=== PATIENT | female | born 1970 | race Caucasian/White ===

== ENCOUNTER 2024-10-09 20:22 | Observation (INO) | payer SELFPAY ==
[2024-10-09] MEDS ORDERED: ASPIRIN EC 81 MG TAB PO ONE (21:09)
[2024-10-09] MEDS ORDERED: NA CHLORIDE 0.9% 1,000 ML ONE (21:09)
[2024-10-09 21:14] LABS: Absolute Lymphocytes (CBC) 1.4 K/uL (0.7-4.9); Absolute Monocytes 0.5 K/uL (0.1-1.3); Absolute Neutrophil 6.4 K/uL (1.8-8.0); Basophils % 0.5 % (0-1.3); Eosinophils % 0.1 % (0-4.4); Hematocrit 37.6 % (36.0-45.0); Hemoglobin 12.6 g/dL (12.0-15.0); Lymphocytes % 16.4 % (15.3-44.8); MCH 29.2 pg (27.0-35.0); MCHC 33.5 g/dL (32.0-36.0); MCV 87.2 fL (80-100); MPV 8.8 fL (7.6-11.3); Monocytes % 5.7 % (3.3-12.3); Neutrophils % 77.3 % (41.7-73.7); Nucleated Red Blood Cells % 0.1 % (0-0); Platelets 275 thou/uL (152-406); RBC Red Blood Cell Count 4.31 M/uL (3.86-4.86); Red Cell Distribution Width 13.8 % (12.1-15.2)
[2024-10-09 21:17] LABS: Specific Gravity < 1.005 (1.005-1.030); Sqamous Epithelial <5 /HPF (None Seen); Urine Bacteria None Seen /HPF (<20); Urine Bilirubin NEGATIVE (Negative); Urine Blood Negative (Negative); Urine Clarity Clear (Clear); Urine Color Colorless (Yellow); Urine Crystals Unidentified Few /HPF (None Seen); Urine Culture Reflex Order NOT NEEDED; Urine Glucose NEGATIVE (Negative); Urine Ketones NEGATIVE (Negative); Urine Microscopic Reflex YN ORDER UMIC; Urine Mucus Slight /HPF (None Seen); Urine Nitrite NEGATIVE (Negative); Urine Protein NEGATIVE (Negative); Urine RBC <5 /HPF (None Seen); Urine Urobilinogen Normal (Normal); Urine WBC <5 /HPF (<5); Urine pH 6.5 (5.0-7.0)
[2024-10-09 21:21] LABS: PT Prothrombin Time 12.2 SECONDS (9.4-12.5); Protime INR 1.16
--- NOTE | 2024-10-09 21:24 | RAD REPORT ---
EXAMINATION: ONE VIEW CHEST XR CLINICAL INDICATION: Female, 54 years old.,COUGH TECHNIQUE: Frontal chest projection is submitted. Examination is limited by patient positioning and t echnique. COMPARISON: No prior exam. FINDINGS: The lungs are well inflated and clear. No pneumothorax or sizable effusion. The heart is normal in s ize. Mediastinal contours are unremarkable. IMPRESSION: No acute intrathoracic abnormalities.
[2024-10-09 21:25] LABS: Barbiturates NEGATIVE (NEGATIVE); Benzodiazepines NEGATIVE (NEGATIVE); Cocaine NEGATIVE (NEGATIVE); METHAMPHETAM NEGATIVE (NEGATIVE); Methadone NEGATIVE (NEGATIVE); Opiates NEGATIVE (NEGATIVE); Phencyclidine NEGATIVE (NEGATIVE); THC Cannibis NEGATIVE (NEGATIVE)
[2024-10-09 21:40] LABS: ALT/SGPT 18 U/L (13-56); AST/SGOT 13 U/L (15-37); Albumin 3.7 g/dL (3.4-5.0); Albumin/Globulin Ratio 0.9 (1.1-1.8); Alkaline Phosphatase 90 U/L (45-117); Anion Gap 10.7 mEq/L (5.0-15.0); BUN Blood Urea Nitrogen 10 mg/dL (7-18); Bicarbonate 25 mEq/L (21-32); Bilirubin Total 0.5 mg/dL (0.2-1.0); Globulin 4.2 g/dL (2.3-3.5); Glomerular Filtration Rate 74 ml/min (=/>90); Glucose Level 105 mg/dL (74-106); Lipase 26 U/L (13-75); Magnesium 2.4 mg/dL (1.6-2.4); NT PRO-BNP 262 pg/mL (<125); Potassium 3.7 mEq/L (3.5-5.1); Protein, Total 7.9 g/dL (6.4-8.2); Sodium Level 140 mEq/L (136-145); Troponin High Sensitivity 6.7 pg/mL (<58.9)
[2024-10-09 21:42] LABS: Bilirubin Direct < 0.2 mg/dL (0-0.2); Bilirubin Indirect, Calculated 0.3 mg/dL (0.2-0.8)
[2024-10-09] MEDS ORDERED: ENOXAPARIN 100 MG/ML SYR SQ ONE (22:14)
[2024-10-09] MEDS ORDERED: METOPROLOL TAR 50 MG TAB ONE (22:14)
[2024-10-09] MEDS ORDERED: ONDANSETRON 4 MG/2 ML VIAL ONE (22:14)
--- NOTE | 2024-10-09 22:14 | EDPHYS ---
Physician Documentation [facility] Name: Mary Beth Pedroza Age: 54 yrs Sex: Female : 1970 Arrival Date: 10/09/2024 Time: 20:22 Bed 19 Private MD: ED Physician Prieto Sanford HPI: 10/09 22:07 This 54 yrs old Female presents to ER via Ambulatory with complaints of Chest dale Pain, High Blood Pressure, Altered Mental Status. 22:07 The patient or guardian reports chest pain that is located primarily in the substernal dale area. Onset: today. The pain does not radiate. Associated signs and symptoms: Pertinent positives: lower extremity pain, lower extremity swelling. The chest pain is described as a heaviness. Modifying factors: The symptoms are alleviated by nothing. the symptoms are aggravated by activity, emotionally stressful situations. Severity of pain: At its worst the pain was moderate in the emergency department the pain is unchanged. The patient has experienced similar episodes in the past, a few times. Historical: - Allergies: 21:17 No Known Allergies; rg5 - Home Meds: 21:17 carvedilol 6.25 mg oral tablet [Active]; losartan potassium (bulk) 100 % miscellaneous rg5 powder [Active]; - Immunization history:: Adult Immunizations not up to date. - Infectious Disease History:: Denies. - Social history:: Smoking status: unknown. - Family history:: not pertinent. ROS: 22:07 Constitutional: Negative for fever, chills, and weight loss, Eyes: Negative for injury, dale pain, redness, and discharge, ENT: Negative for injury, pain, and discharge, Neck: Negative for injury, pain, and swelling, Abdomen/GI: Negative for abdominal pain, nausea, vomiting, diarrhea, and constipation, Back: Negative for injury and pain, : Negative for injury, bleeding, discharge, and swelling, Skin: Negative for injury, rash, and discoloration, Neuro: Negative for headache, weakness, numbness, tingling, and seizure, Psych: Negative for depression, anxiety, suicide ideation, homicidal ideation, and hallucinations, Allergy/Immunology: Negative for hives, rash, and allergies, Endocrine: Negative for neck swelling, polydipsia, polyuria, polyphagia, and marked weight changes, Hematologic/Lymphatic: Negative for swollen nodes, abnormal bleeding, and unusual bruising, 22:07 Cardiovascular: Positive for chest pain, 22:07 Respiratory: Positive for shortness of breath, 22:07 MS/extremity: Positive for pain, of the right leg and left leg, Exam: 22:07 Constitutional: This is a well developed, well nourished patient who is awake, alert, dale and in no acute distress. Head/Face: Normocephalic, atraumatic. Eyes: Pupils equal round and reactive to light, extra-ocular motions intact. Lids and lashes normal. Conjunctiva and sclera are non-icteric and not injected. Cornea within normal limits. Periorbital areas with no swelling, redness, or edema. ENT: Nares patent. No nasal discharge, no septal abnormalities noted. Tympanic membranes are normal and external auditory canals are clear. Oropharynx with no redness, swelling, or masses, exudates, or evidence of obstruction, uvula midline. Mucous membranes moist. Neck: Trachea midline, no thyromegaly or masses palpated, and no cervical lymphadenopathy. Supple, full range of motion without nuchal rigidity, or vertebral point tenderness. No Meningismus. Chest/axilla: Normal chest wall appearance and motion. Nontender with no deformity. No lesions are appreciated. Cardiovascular: Regular rate and rhythm with a normal S1 and S2. No gallops, murmurs, or rubs. Normal PMI, no JVD. No pulse deficits. Respiratory: Lungs have equal breath sounds bilaterally, clear to auscultation and percussion. No rales, rhonchi or wheezes noted. No increased work of breathing, no retractions or nasal flaring. Abdomen/GI: Soft, non-tender, with normal bowel sounds. No distension or tympany. No guarding or rebound. No evidence of tenderness throughout. Back: No spinal tenderness. No costovertebral tenderness. Full range of motion. Skin: Warm, dry with normal turgor. Normal color with no rashes, no lesions, and no evidence of cellulitis. MS/ Extremity: Pulses equal, no cyanosis. Neurovascular intact. Full, normal range of motion., bilateral aka Neuro: Awake and alert, GCS 15, oriented to person, place, time, and situation. Cranial nerves II-XII grossly intact. Motor strength 5/5 in all extremities. Sensory grossly intact. Cerebellar exam normal. Normal gait. Psych: Awake, alert, with orientation to person, place and time. Behavior, mood, and affect are within normal limits. 22:07 ECG was reviewed by the Attending Physician. 22:07 Musculoskeletal/extremity: ROM: no acute changes, intact in all extremities, full active range of motion, full passive range of motion, Circulation is intact in all extremities. Sensation intact. Compartment Syndrome exam of affected extremity: is normal. Weight bearing: able to fully bear weight, DVT Exam: negative Homans' sign noted on exam, no appreciated bluish discoloration, no erythema, no increased warmth, pain, swelling, tenderness, Vital Signs: 20:26 BP 178 / 106; Pulse 91; Resp 18; Temp 98.3(O); Pulse Ox 96% on R/A; Height 5 ft. 7 in. rg5 ; Pain 5/10; 21:45 BP 175 / 91; Pulse 84; Resp 19; Pulse Ox 95% on R/A; Weight 92.99 kg; rg5 22:30 BP 162 / 88; Pulse 79; Resp 18; Pulse Ox 97% on R/A; rg5 23:30 BP 146 / 84; Pulse 69; Resp 18; Pulse Ox 98% on R/A; rg5 10/10 00:15 BP 147 / 80; Pulse 68; Resp 18; Pulse Ox 96% on R/A; rg5 10/09 20:26 Pain Scale: Adult rg5 Terry Coma Score: 10/09 20:30 Eye Response: spontaneous(4). Motor Response: obeys commands(6). Verbal Response: rg5 oriented(5). Total: 15. MDM: 20:26 Medical Screening Exam initiated dale 22:16 Differential diagnosis: abnormal EKG, acute myocardial infarction, acute pericarditis, dale anxiety, chest wall pain, Cholelithiasis costochondritis, esophagitis, gastroesophageal reflux disease (GERD), hiatal hernia, pancreatitis, peptic ulcer disease, pericarditis, pleurisy, pneumonia, pulmonary embolus, stable angina, thoracic aortic disection, unstable angina. HEART Score: History: Moderately Suspicious (1), ECG: Normal (0), Age: > 45 and < 65 years (1), Risk Factors: > or = 3 Risk factors for atherosclerotic disease (2), [Hypertension] [+ Family HX] [Obesity] Troponin: < or = 1 x Normal Limit (0). The patient was given aspirin in the Emergency Department. Data reviewed: vital signs, nurses notes, lab test result(s), EKG, radiologic studies, doppler, plain films. Consideration of Admission/Observation Patient was admitted/placed on observation. Escalation of care including admission/observation considered. I considered the following discharge prescriptions or medication management in the emergency department Medications were administered in the Emergency Department. See MAR. Independent interpretation of the following test(s) in the Emergency Department EKG: See my EKG interpretation above. Test considered but Not performed: Ultrasound NO 2 D ECHO. Historians other than the Patient: PT WELL INFORMED. Care significantly affected by the following chronic conditions: Hypertension, Obesity. Counseling: I had a detailed discussion with the patient and/or guardian regarding the historical points, exam findings, and any diagnostic results supporting the discharge/admit diagnosis, the presence of at least one elevated blood pressure reading (>120/80) during this emergency department visit, lab results, the need for further work-up and treatment in the hospital. 10/09 20: Order name: Basic Metabolic Panel; Complete Time: 22:10/09 20:33 Order name: CBC with Diff; Complete Time: 22:10/09 20:33 Order name: LFT's; Complete Time: 22:10/09 20:33 Order name: Magnesium; Complete Time: 22:10/09 20:33 Order name: NT PRO-BNP; Complete Time: 22:05 10/09 20:33 Order name: PT-INR; Complete Time: 22:10/09 20: Order name: Troponin HS; Complete Time: 22:05 10/09 20:33 Order name: Lipase; Complete Time: 22:05 10/09 20:33 Order name: Asprin; Complete Time: 22:05 10/09 20:33 Order name: Tylenol Level; Complete Time: 22:05 10/09 20:33 Order name: ETOH Level; Complete Time: 22:10/09 20:33 Order name: UDS; Complete Time: 22:05 10/09 20:33 Order name: Urinalysis w/ reflexes; Complete Time: 22:10/09 21:16 Order name: Thyroid Stimulating Hormone; Complete Time: 22:05 EDMS 10/09 22:06 Order name: Urine Creatinine; Complete Time: 22:56 [facility] 10/09 23:05 Order name: Urinalysis w/ reflexes [facility] 10/09 23:05 Order name: CBC with Automated Diff [facility] 10/09 23:05 Order name: CBC with Automated Diff [facility] 10/09 23:05 Order name: Comprehensive Metabolic Panel [facility] 10/09 23:05 Order name: Comprehensive Metabolic Panel [facility] 10/09 23:05 Order name: Troponin High Sensitivity [facility] 10/09 23:05 Order name: Troponin High Sensitivity [facility] 10/09 23:05 Order name: Troponin High Sensitivity [facility] 10/09 23:05 Order name: Troponin High Sensitivity [facility] 10/09 20:33 Order name: XRAY Chest (1 view); Complete Time: 22:05 [facility] 10/09 20:33 Order name: CT Head Brain wo Cont; Complete Time: 22:56 [facility] 10/09 20:33 Order name: CT Chest For PE Angio [facility] 10/09 20:47 Order name: US Extremity Venous W Compression Don; Complete Time: 22:56 [facility] 10/09 20:33 Order name: EKG; Complete Time: 20:33 [facility] 10/09 20:33 Order name: Cardiac monitoring; Complete Time: 20:59 [facility] 10/09 20:33 Order name: EKG - Nurse/Tech; Complete Time: 20:59 [facility] 10/09 20:33 Order name: IV Saline Lock; Complete Time: 21:08 [facility] 10/09 20:33 Order name: Labs collected and sent; Complete Time: 21:08 [facility] 10/09 20:33 Order name: O2 Per Protocol; Complete Time: 21:17 [facility] 10/09 20:33 Order name: O2 Sat Monitoring; Complete Time: 21:17 [facility] EC:07 Rate is 87 beats/min. Rhythm is regular. QRS [place] is Normal. MI interval is normal. QRS dale interval is normal. QT interval is normal. No Q waves. T waves are Normal. No ST changes noted. Clinical impression: Normal ECG and No evidence of ischemia. Interpreted by me. Reviewed by me. Administered Medications: 21:10 Drug: NS 0.9% IV 1000 ml IV at 1000 ml once; to be given as a bolus over 60 minutes rg5 Route: IV; Rate: 1000 ml; Site: left antecubital; 22:30 Follow up: IV Status: Completed infusion; IV Intake: 1000ml rg5 21:10 Drug: Aspirin PO Chewable Tablet 81 mg PO once Route: PO; rg5 21:43 Follow up: Response: No adverse reaction rg5 22:15 Drug: Enoxaparin Sub-Q 1 mg/kg Sub-Q once Route: Sub-Q; Site: right lower abdomen; rg5 10/10 00:40 Follow up: Response: No adverse reaction rg5 10/09 22:15 Drug: Metoprolol PO 50 mg PO once Route: PO; rg5 10/10 00:40 Follow up: Response: No adverse reaction; Blood sugar is lowered rg5 10/09 22:15 Drug: morphine IVP or IV 2 mg IVP once over 4 mins Route: IVP; Infused Over: 4 mins; rg5 Site: left antecubital; 10/10 00:40 Follow up: Response: No adverse reaction; Pain is decreased rg5 10/09 22:15 Drug: Ondansetron IVP 4 mg IVP once; over 2 minutes Route: IVP; Site: left antecubital; rg5 10/10 00:40 Follow up: Response: No adverse reaction rg5 Disposition Summary: 10/09/24 22:13 Hospitalization Ordered Notes: Hospitalization Status: Observation dale Provider: Angel Luis Epstein cha Location: Telemetry/MedSurg (observation) dale Condition: [place] dale Problem: new dale Symptoms: have improved dale Bed/Room Type: Standard dale Room Assignment: 219(10/09/24 23:14) rv1 Diagnosis - Chest pain, unspecified dale - Pain in left lower leg dale - Pain in right lower leg dale - Essential (primary) hypertension dale Forms: - Medication Reconciliation Form dale - SBAR form dale - Leadership Thank You Letter dale Signatures: Dispatcher [employer] EDPrieto Scott MD MD cha Villegas, Rebecca rv1 Theron Mcgill RN RN rg5 Corrections: (The following items were deleted from the chart) 10/09 20:34 20:33 Chest Single View+RAD.RAD.BRZ ordered. EDMS EDMS 21:17 20:48 THYROID STIMULAT HORMONE+C.LAB.BRZ ordered. EDMS EDMS 23:14 22:13 dale rv1
--- NOTE | 2024-10-09 22:14 | ER ---
Nurse's Notes [facility] Name: Mary Beth Pedroza Age: 54 yrs Sex: Female : 1970 Arrival Date: 10/09/2024 Time: 20:22 Bed 19 Private MD: Diagnosis: Chest pain, unspecified;Pain in left lower leg;Pain in right lower leg;Essential (primary) hypertension Presentation: 10/09 20:26 Chief complaint: Patient states: my blood pressure is high and my legs are swelling on rg5 \T\ off. Pt also complaint of chest discomfort. 20:26 Coronavirus screen: Vaccine status: Patient reports being unvaccinated. Client denies rg5 travel out of the [place] in the last 14 days. Ebola Screen: Patient negative for fever greater than or equal to 101.5 degrees Fahrenheit, and additional compatible Ebola Virus Disease symptoms. Initial Sepsis Screen: Does the patient meet any 2 criteria? No. Patient's initial sepsis screen is negative. Does the patient have a suspected source of infection? No. Patient's initial sepsis screen is negative. Risk Assessment: Do you want to hurt yourself or someone else? Patient reports no desire to harm self or others. Onset of symptoms was October 09, 2024. 20:26 Method Of Arrival: Ambulatory rg5 20:26 Acuity: MAK 3 rg5 Triage Assessment: 20:26 General: Appears in no apparent distress. Behavior is calm, cooperative. Pain: Denies rg5 pain. Cardiovascular: Reports chest pain, Patient's skin is warm and dry. Rhythm is sinus rhythm. Respiratory: Airway is patent Trachea midline Respiratory effort is even, unlabored. GI: Abdomen is round obese. : No signs and/or symptoms were reported regarding the genitourinary system. Derm: Skin is intact, Skin is dry, Skin is normal. Musculoskeletal: Circulation, motion, and sensation intact. Range of motion:. Historical: - Allergies: 21:17 No Known Allergies; rg5 - Home Meds: 21:17 carvedilol 6.25 mg oral tablet [Active]; losartan potassium (bulk) 100 % miscellaneous rg5 powder [Active]; - Immunization history:: Adult Immunizations not up to date. - Infectious Disease History:: Denies. - Social history:: Smoking status: unknown. - Family history:: not pertinent. Screenin:26 [facility] ED Fall Risk Assessment (Adult) History of falling in the last 3 months, rg5 including since admission No falls in past 3 months (0 pts) Confusion or Disorientation No (0 pts) Intoxicated or Sedated No (0 pts) Impaired Gait No (0 pts) Mobility Assist Device Used No (0 pt) Altered Elimination No (0 pt) Score/Fall Risk Level 0 - 2 = Low Risk Oriented to surroundings, Maintained a safe environment, Hourly rounding (assess needs \T\ fall precautionary measures) done. Abuse screen: Denies threats or abuse. Nutritional screening: No deficits noted. Tuberculosis screening: No symptoms or risk factors identified. Assessment: 20:30 Pain: Pain does not radiate. Pain began 1 hour ago. rg5 20:30 General: Appears in no apparent distress. Behavior is calm, cooperative, appropriate rg5 for age. Neuro: Level of Consciousness is awake, alert, Oriented to person, place, time. Cardiovascular: Reports chest pain. Respiratory: Airway is patent Trachea midline. GI: Abdomen is round. : No signs and/or symptoms were reported regarding the genitourinary system. EENT: No deficits noted. Derm: No signs and/or symptoms reported regarding the dermatologic system. Musculoskeletal: Circulation, motion, and sensation intact. Range of motion: intact in all extremities. 21:00 Reassessment: Patient and/or family updated on plan of care and expected duration. Pain rg5 level reassessed. Patient is alert, oriented x 3, equal unlabored respirations, skin warm/dry/pink. 22:00 Reassessment: Patient and/or family updated on plan of care and expected duration. Pain rg5 level reassessed. Patient is alert, oriented x 3, equal unlabored respirations, skin warm/dry/pink. 23:00 Reassessment: Patient and/or family updated on plan of care and expected duration. Pain rg5 level reassessed. Patient is alert, oriented x 3, equal unlabored respirations, skin warm/dry/pink. Patient states feeling better. 10/10 00:30 Reassessment: No changes from previously documented assessment. Patient and/or family rg5 updated on plan of care and expected duration. Pain level reassessed. Patient is alert, oriented x 3, equal unlabored respirations, skin warm/dry/pink. Vital Signs: 10/09 20:26 BP 178 / 106; Pulse 91; Resp 18; Temp 98.3(O); Pulse Ox 96% on R/A; Height 5 ft. 7 in. rg5 ; Pain 5/10; 21:45 BP 175 / 91; Pulse 84; Resp 19; Pulse Ox 95% on R/A; Weight 92.99 kg; rg5 22:30 BP 162 / 88; Pulse 79; Resp 18; Pulse Ox 97% on R/A; rg5 23:30 BP 146 / 84; Pulse 69; Resp 18; Pulse Ox 98% on R/A; rg5 10/10 00:15 BP 147 / 80; Pulse 68; Resp 18; Pulse Ox 96% on R/A; rg5 10/09 20:26 Pain Scale: Adult rg5 Vitals: 10/09 20:30 Cardiac Rhythm Assessment Regular Sinus rhythm. rg5 Jackson Coma Score: 20:30 Eye Response: spontaneous(4). Motor Response: obeys commands(6). Verbal Response: rg5 oriented(5). Total: 15. ED Course: 20:23 Patient arrived in ED. [email or web address] 20:26 Prieto Sanford MD is Attending Physician. dale 20:26 No provider procedures requiring assistance completed. rg5 20:26 Arm band placed on. EKG completed in triage. Results shown to MD. rg5 20:26 Patient has correct armband on for positive identification. Call light in reach. Side rg5 rails up X 1. Client placed on continuous cardiac and pulse oximetry monitoring. NIBP monitoring applied. cardiac monitor on. Pulse ox on. NIBP on. Door closed. Noise minimized. Warm blanket given. 20:30 Patient maintains SpO2 saturation greater than 95% on room air. rg5 20:41 Theron Mcgill, RN is Primary Nurse. rg5 20:55 Triage completed. rg5 21:00 Inserted saline lock: 20 gauge in right antecubital area, using aseptic technique. vk Blood collected. Flushed with 10 mL NS. 21:08 Urinalysis w/ reflexes Sent. vk 21:08 UDS Sent. vk 21:08 ETOH Level Sent. vk 21:08 Tylenol Level Sent. vk 21:08 Basic Metabolic Panel Sent. vk 21:08 CBC with Diff Sent. vk 21:08 LFT's Sent. vk 21:08 Magnesium Sent. vk 21:08 NT PRO-BNP Sent. vk 21:08 PT-INR Sent. vk 21:08 Troponin HS Sent. vk 21:08 Asprin Sent. vk 21:08 Inserted saline lock: 20 gauge in left antecubital area, using aseptic technique. Blood vk collected. Flushed with 10 mL NS. 21:15 XRAY Chest (1 view) In Process Unspecified. EDMS 22:09 US Extremity Venous W Compression Don In Process Unspecified. EDMS 22:12 Angel Luis Epstein MD is Hospitalizing Provider. dale 22:17 CT Head Brain wo Cont In Process Unspecified. EDMS 22:20 CT Chest For PE Angio In Process Unspecified. EDMS 10/10 00:34 Patient admitted, IV remains in place. intact, No redness/swelling at site. [facility] 00:35 Provided Education on: post er care. rg Administered Medications: 10/09 21:10 Drug: NS 0.9% IV 1000 ml IV at 1000 ml once; to be given as a bolus over 60 minutes rg Route: IV; Rate: 1000 ml; Site: left antecubital; 22:30 Follow up: IV Status: Completed infusion; IV Intake: 1000ml rg5 21:10 Drug: Aspirin PO Chewable Tablet 81 mg PO once Route: PO; [facility] 21:43 Follow up: Response: No adverse reaction [facility] 22:15 Drug: Enoxaparin Sub-Q 1 mg/kg Sub-Q once Route: Sub-Q; Site: right lower abdomen; rg5 10/10 00:40 Follow up: Response: No adverse reaction [facility] 10/09 22:15 Drug: Metoprolol PO 50 mg PO once Route: PO; rg5 10/10 00:40 Follow up: Response: No adverse reaction; Blood sugar is lowered rg 10/09 22:15 Drug: morphine IVP or IV 2 mg IVP once over 4 mins Route: IVP; Infused Over: 4 mins; [facility] Site: left antecubital; 10/10 00:40 Follow up: Response: No adverse reaction; Pain is decreased [facility] 10/09 22:15 Drug: Ondansetron IVP 4 mg IVP once; over 2 minutes Route: IVP; Site: left antecubital; [facility] 10/10 00:40 Follow up: Response: No adverse reaction rg5 Medication: 00:35 VIS not applicable for this client. rg5 Intake: 10/09 22:30 IV: 1000ml; Total: 1000ml. rg5 Outcome: 22:13 Decision to Hospitalize by Provider. dale 10/10 00:34 Admitted to Med/surg accompanied by tech, via wheelchair, rg5 Condition: stable Instructed on the need for admit, 00:47 Patient left the ED. rg5 Signatures: Dispatcher [employer] EDMS Prieto Sanford MD MD cha Jeffries, Jennifer [email or web address] Kruse, Vivian vk Gallardo, Rommel, ANTHONY RN rg5 Corrections: (The following items were deleted from the chart) 10/09 21:17 21:08 THYROID STIMULAT HORMONE+C.LAB.NICCIZ drawn and sent. [facility] 21:54 21:45 BP 122 / 57; Pulse 63bpm; Resp 19bpm; Pulse Ox 95% RA; rg5 rg5 22:10 21:45 BP 175 / 91; Pulse 84bpm; Resp 19bpm; Pulse Ox 95% RA; rg5 rg5 10/10 00:38 10/09 21:25 Reassessment: see triage assessment. rg5 rg5
[2024-10-09] MEDS ORDERED: MORPHINE 2 MG/ML SYR ONE (22:15)
--- NOTE | 2024-10-09 22:21 | P.HP ---
Certification for Inpatient Patient admitted to: Inpatient With expected LOS: >2 Midnights Practitioner: I am a practitioner with admitting privileges, knowledge of patient current condition, hospital course, and medical plan of care. Services: Services provided to patient in accordance with Admission requirements found in Title 42 Section 412.3 of the Code of Federal Regulations Patient History Date of Service: 10/09/24 Reason for admission: Chest Pain History of Present Illness: 54 yrs old Female with past medical history of hypertension, hyperlipidemia who was brought to ER with chest discomfort. Patient states that she started having chest pain retrosternally without radiation, pressure-like, denies any diaphoresis, no fever or chills. No nausea vomiting or diarrhea. Pain worsens with activity and emotionally stressful situations. Denies any cough Patient was assessed in the ER and is admitted for further management of chest pain to rule out ACS Allergies No Known Allergies Allergy (Unverified 10/09/24 23:31) - Past Medical/Surgical History Past Medical History: Reviewed- Non-Contributory -: Hypertension Past Surgical History: Reviewed- Non-Contributory - Family History Family History: Reviewed- Non-Contributory - Social History Smoking Status: Never smoker Review of Systems 10-point ROS is otherwise unremarkable Physical Examination - Vital Signs Temperature: 97.2 F Blood Pressure: 138/76 Pulse: 78 Respirations: 18 Pulse Ox (%): 94 - Physical Exam General: Alert, Oriented x3, Mild distress HEENT: Atraumatic, Normocephalic Neck: Supple Respiratory: Clear to auscultation bilaterally, Normal air movement Cardiovascular: Regular rate/rhythm, Normal S1 S2 Capillary refill: <2 Seconds Gastrointestinal: Soft and benign, W/out hepatosplenomegaly Musculoskeletal: No clubbing Integumentary: No rashes Neurological: Normal speech, Normal strength at 5/5 x4 extr, Cranial nerves 3-12 intact Lymphatics: No axilla or inguinal lymphadenopathy - Studies Laboratory Data (last 24 hrs) 10/09/24 10/09/24 10/09/24 21:00 21:00 21:00 WBC 8.30 Hgb 12.6 Hct 37.6 Plt Count 275 PT 12.2 INR 1.16 Sodium 140 Potassium 3.7 BUN 10 Creatinine 0.91 Glucose 105 Magnesium 2.4 Total Bilirubin 0.5 AST 13 L ALT 18 Alkaline Phosphatase 90 Lipase 26 Assessment and Plan - Plan Chest pain to rule out ACS Will trend cardiac enzymes Will monitor telemetry Started on aspirin and statin EKG did not show any acute changes suggestive of ischemia Patient denies any chest pain Cardiology consult Hypertension Antihypertensives titrated Continue home medications and titrate as needed Hyperlipidemia Continue statin GI/DVT prophylaxis Advanced directive full code Discharge Plan: Home Plan to discharge in: 24 Hours - Advance Directives Does patient have a Living Will: No Does patient have a Durable POA for Healthcare: No - Code Status/Comfort Care Code Status: Full Code Time Spent Managing Pts Care (In Minutes): 46
--- NOTE | 2024-10-09 22:38 | RAD REPORT ---
EXAMINATION: US Extrem Venous W Compress Don CLINICAL INDICATION: [facility] MAIN Swelling;Pain Bed Name: 19 N TECHNIQUE: Complete bilateral duplex sonography of the BILATERAL lower extremity veins was performed. The examination included compression for vein patency, color Doppler imaging and flow augmentation in response to distal compression of the distal external iliac, common femoral, femoral, popliteal, t ibial, and great and small saphenous veins. COMPARISON: No prior exam. FINDINGS: Duplex sonography testing of the veins of the BILATERAL lower extremity was performed. Color flow yandy ging shows all veins to be compressible with [id number] color filling. Pulsatile and phasic flow is present within all lower extremity deep and superficial veins examined. IMPRESSION: There is no deep vein or superficial vein thrombosis.
--- NOTE | 2024-10-09 22:54 | RAD REPORT ---
EXAM: CT Head Brain Wo Cont HISTORY: HEADACHE COMPARISON: None TECHNIQUE: Multiple contiguous axial images were obtained for a CT of the brain without contrast. Sag ittal and coronal reformats were performed. One or more of the following dose reduction techniques were used: Automated exposure control, adjus tment of the mA and kV according to patient size, and iterative reconstruction. Unless otherwise specified, incidental findings do not require dedicated imaging follow-up. FINDINGS: No evidence of hydrocephalus, intracranial hemorrhage, or extra-axial fluid collection. The brain is normal in morphology. The calvarium is intact. Patchy opacification throughout the ethmoidal air cells. Mastoid air cells a re essentially clear. IMPRESSION: No evidence of acute intracranial abnormality. Patchy opacification throughout the right more than left mastoid air cells, correlate clinically for acute sinusitis.
[2024-10-09] MEDS ORDERED: ONDANSETRON 4 MG/2 ML VIAL IV PRN (22:58)
--- NOTE | 2024-10-09 22:58 | RAD REPORT ---
EXAM: CT Chest For Pe Angio TECHNIQUE: CT angiogram of the chest was performed following intravenous contrast administration, inc luding sagittal and coronal as well as maximum intensity projection reformats. One or more of the following dose reduction techniques were used: Automated exposure control, adjustment of the mA and k V according to patient size, and iterative reconstruction. Unless otherwise specified, incidental findings do not require dedicated imaging follow-up. INDICATION: [facility] MAIN CHEST PAIN Bed Name: 8 N COMPARISON: Chest radiograph of the same day. FINDINGS: LINES/TUBES: None. PULMONARY ARTERIES: Main pulmonary arteries are normal in caliber. No filling defects within the pul monary arteries to suggest pulmonary embolus. LUNGS AND AIRWAYS: The lungs and central airways are normal without focal abnormality. PLEURA: No effusion or pneumothorax. HEART AND MEDIASTINUM: The visualized thyroid gland is normal. No mediastinal, hilar, or axillary lym phadenopathy. Heart is unremarkable. No pericardial effusion. SOFT TISSUES AND BONES: No acute osseous abnormality. No significant soft tissue finding. UPPER ABDOMEN: Unremarkable. IMPRESSION: No evidence of acute central pulmonary emboli. No suspicious intrathoracic findings..
[2024-10-10 01:24] VITALS: BMI 32.3
[2024-10-10 03:12] VITALS: O2SAT 98
[2024-10-10 06:03] LABS: Absolute Eosinophils 0.1 K/uL (0-0.5); Absolute Monocytes 0.9 K/uL (0.1-1.3); Absolute Neutrophil 4.6 K/uL (1.8-8.0); Basophils % 0.5 % (0-1.3); Eosinophils % 0.8 % (0-4.4); Hematocrit 31.1 % (36.0-45.0); Hemoglobin 10.7 g/dL (12.0-15.0); Lymphocytes % 26.4 % (15.3-44.8); MCH 29.8 pg (27.0-35.0); MCHC 34.3 g/dL (32.0-36.0); MCV 86.8 fL (80-100); MPV 8.6 fL (7.6-11.3); Monocytes % 11.4 % (3.3-12.3); Neutrophils % 60.9 % (41.7-73.7); Nucleated Red Blood Cells % 0.1 % (0-0); Platelets 233 thou/uL (152-406); RBC Red Blood Cell Count 3.58 M/uL (3.86-4.86); Red Cell Distribution Width 13.6 % (12.1-15.2)
[2024-10-10 06:23] LABS: Albumin/Globulin Ratio 0.9 (1.1-1.8); Anion Gap 5.8 mEq/L (5.0-15.0); Bilirubin Total 0.3 mg/dL (0.2-1.0); Globulin 3.4 g/dL (2.3-3.5); Potassium 3.8 mEq/L (3.5-5.1); Protein, Total 6.4 g/dL (6.4-8.2)
[2024-10-10] MEDS: FLU (Fluarix Triv) TS24-25(6MOS UP)/PF 45 MCG/0.5 ML Syringe IM ONE (07:45)
[2024-10-10] MEDS: ASPIRIN EC 81 MG TAB PO SCH (09:00)
--- NOTE | 2024-10-10 09:46 | P.CNS ---
Date of Consult: 10/10/24 Chief Complaint: Chest Pain History of Present Illness: Patient with PMH of anxiety, HTN, presented with fluttery sensation in her chest, denies having chest pain, no SOB, no VILLAREAL, only report occasional palpitations last for few minutes, mainly happen when she stressed out, no synco pe. Allergies peanut Allergy (Verified 10/10/24 02:57) Nausea/Vomiting wheat Allergy (Verified 10/10/24 02:57) Nausea/Vomiting Home medications list reviewed: Yes Home Medications: Aspirin Chewable [Aspirin Chewable*] 81 mg PO DAILY 10/10/24 Losartan Potassium [Cozaar*] 50 mg PO DAILY 10/10/24 carvediloL [Coreg*] 6.25 mg PO BID 10/10/24 - Past Medical/Surgical History Diabetic: No -: Hypertension -: anxiety -: c.section - Social History Alcohol use: No CD- Drugs: No Place of Residence: Home Review of Systems 10-point ROS is otherwise unremarkable Physical Examination Temp Pulse Resp BP Pulse Ox 98.6 F 70 16 121/62 98 10/10/24 08:00 10/10/24 08:00 10/10/24 08:00 10/10/24 08:00 10/10/24 08:00 General: Alert, In no apparent distress HEENT: Atraumatic, PERRLA, Mucous membr. moist/pink, EOMI, Sclerae nonicteric Neck: Supple, 2+ carotid pulse no bruit, No LAD, Without JVD or thyroid abnormality Respiratory: Clear to auscultation bilaterally, Normal air movement Cardiovascular: Regular rate/rhythm, Normal S1 S2 Gastrointestinal: Normal bowel sounds, No tenderness Musculoskeletal: No tenderness Integumentary: No rashes Neurological: Normal gait, Normal speech, Normal tone, Normal affect Lymphatics: No axilla or inguinal lymphadenopathy Laboratory Data (last 24 hrs) 10/09/24 10/09/24 10/09/24 21:00 21:00 21:00 WBC 8.30 Hgb 12.6 Hct 37.6 Plt Count 275 PT 12.2 INR 1.16 Sodium 140 Potassium 3.7 BUN 10 Creatinine 0.91 Glucose 105 Magnesium 2.4 Total Bilirubin 0.5 AST 13 L ALT 18 Alkaline Phosphatase 90 Lipase 26 - Problems (1) Chest pain Current Visit: Yes Status: Acute Plan: Patient denies having chest pain, Troponin are negative. get Echo, if normal then no further cardiac work up needed. (2) Palpitations Current Visit: Yes Status: Acute Plan: recommend to switch patient home coreg to metoprolol 25 mg po BID continue losartan.
[2024-10-10] MEDS: ENOXAPARIN 40 MG/0.4 ML SQ SCH (09:51)
[2024-10-10] MEDS: POTASSIUM 25 MEQ EFFERV TAB PO ONE (09:51)
--- NOTE | 2024-10-10 13:51 | ECHO ---
HEIGHT: 5 ft 7 in WEIGHT: 206 lb 14.4 oz DATE OF STUDY: 10/10/[address]: Pineda Epstein DO 2-DIMENSIONAL: YES M.MODE: YES DOPPLER: YES COLOR FLOW: YES TDS: NO PORTABLE: YES DEFINITY: NO BUBBLE STUDY: NO DIAGNOSIS: CHEST PAIN CARDIAC HISTORY: CATHERIZATION: NO SURGERY: NO PROSTHETIC VALVE: NO PACEMAKER: NO MEASUREMENTS (cm) DIASTOLIC (NORMALS) SYSTOLIC (NORMALS) IVSd 1.3 (0.6-1.2) LA Diam 3.2 (1.9-4.0) LVEF 60-65% LVIDd 4.7 (3.5-5.7) LVIDs 2.9 (2.0-3.5) %FS 38% LVPWd 1.3 (0.6-1.2) Ao Diam 2.6 (2.0-3.7) 2 DIMENSIONAL ASSESSMENT: RIGHT ATRIUM: NORMAL LEFT ATRIUM: NORMAL RIGHT VENTRICLE: NORMAL LEFT VENTRICLE: NORMAL TRICUSPID VALVE: NORMAL MITRAL VALVE: NORMAL PULMONIC VALVE: NORMAL AORTIC VALVE: NORMAL PERICARDIAL EFFUSION: NONE AORTIC ROOT: NORMAL LEFT VENTRICULAR WALL MOTION: NORMAL. DOPPLER/COLOR FLOW: NORMAL. COMMENTS: 1. NORMAL LEFT VENTRICULAR SYSTOLIC FUNCTION, EJECTION FRACTION 60-65%, NORMAL WALL MOTION. 2. NORMAL DIASTOLIC FUNCTION. TECHNOLOGIST: DARLYN UGALDE
--- NOTE | 2024-10-10 15:05 | P.DS ---
Admission Date: 10/09/24 Discharge Date: 10/11/24 Disposition: ROUTINE DISCHARGE Discharge Condition: GOOD Reason for Admission: Chest Pain Consultations: Dr. Whipple Brief History of Present Illness: 54 yrs old Female with past medical history of hypertension, hyperlipidemia who was brought to ER with chest discomfort. Patient states that she started having chest pain retrosternally without radiation, pressure-like, denies any diaphoresis, no fever or chills. No nausea vomiting or diarrhea. Pain worsens with activity and emotionally stressful situations. Denies any cough. Patient was assessed in the ER and is admitted for further management of chest pain to rule out ACS Hospital Course: Serial troponin evaluations normal. Exam and ECHO with normal results. Dr. Mack araya recommend switching home medication coreg to metoprolol 25 mg po BID and continuation of losartan. Mr. Pedroza should follow up with her PCP in 2 weeks. Vital Signs/Physical Exam: Temp Pulse Resp BP Pulse Ox 98.8 F 74 16 132/63 96 10/10/24 12:00 10/10/24 12:00 10/10/24 12:00 10/10/24 12:00 10/10/24 12:00 General: In no apparent distress, Oriented x3, Cooperative, Other ([place]) HEENT: Atraumatic, Normocephalic Neck: Supple Respiratory: Normal air movement Cardiovascular: Normal pulses, Regular rate/rhythm, Normal S1 S2 Capillary refill: <2 Seconds Gastrointestinal: Soft and benign Musculoskeletal: No clubbing Integumentary: No rashes Neurological: Normal speech, Normal tone, Abnormal affect Lymphatics: No axilla or inguinal lymphadenopathy External genitalia: Deferred Rectal: Deferred Laboratory Data at Discharge: WBC 7.60 thou/uL (4.3-10.9) 10/10/24 05:48 Hgb 10.7 g/dL (12.0-15.0) L D 10/10/24 05:48 Hct 31.1 % (36.0-45.0) L 10/10/24 05:48 Plt Count 233 thou/uL (152-406) 10/10/24 05:48 PT 12.2 SECONDS (9.4-12.5) 10/09/24 21:00 INR 1.16 10/09/24 21:00 Sodium 142 mEq/L (136-145) 10/10/24 05:48 Potassium 3.8 mEq/L (3.5-5.1) 10/10/24 05:48 BUN 10 mg/dL (7-18) 10/10/24 05:48 Creatinine 0.83 mg/dL (0.55-1.02) 10/10/24 05:48 Glucose 106 mg/dL (74-106) 10/10/24 05:48 Magnesium 2.4 mg/dL (1.6-2.4) 10/09/24 21:00 Total Bilirubin 0.3 mg/dL (0.2-1.0) 10/10/24 05:48 AST 11 U/L (15-37) L 10/10/24 05:48 ALT 16 U/L (13-56) 10/10/24 05:48 Alkaline Phosphatase 71 U/L (45-117) D 10/10/24 05:48 Triglycerides 67 mg/dL (<150) 10/10/24 02:15 Cholesterol 194 mg/dL (<200) 10/10/24 02:15 HDL Cholesterol 84 mg/dL (40-60) H 10/10/24 02:15 Cholesterol/HDL Ratio 2.31 10/10/24 02:15 Lipase 26 U/L (13-75) 10/09/24 21:00 Home Medications: Aspirin Chewable [Aspirin Chewable*] 81 mg PO DAILY 10/10/24 Losartan Potassium [Cozaar*] 50 mg PO DAILY 10/10/24 Losartan Potassium [Cozaar*] 50 mg PO DAILY 10/10/24 Metoprolol Tartrate [Lopressor*] 25 mg PO BID 6AM 6PM #60 tab 10/10/24 New Medications: Metoprolol Tartrate [Lopressor*] 25 mg PO BID 6AM 6PM #60 tab Physician Discharge Instructions: Brief History of Present Illness: 54 yrs old Female with past medical history of hypertension, hyperlipidemia who was brought to ER with chest discomfort. Patient states that she started having chest pain retrosternally without radiation, pressure-like, denies any diaphoresis, no fever or chills. No nausea vomiting or diarrhea. Pain worsens with activity and emotionally stressful situations. Denies any cough. Patient was assessed in the ER and is admitted for further management of chest pain to rule out ACS Hospital Course: Serial troponin evaluations normal. Exam and ECHO with normal results. Dr. Whipple recommend switching home medication coreg to metoprolol 25 mg po BID and continuation of losartan. Mr. Pedroza should follow up with her PCP in 2 weeks. RX: Metoprolol 25mg po BID #60 please discontinue Coreg GOAL: Clear understanding of disease process Diet: AHA Activity: ad juliet INSTRUCTIONS: Physician Discharge Instructions: Okay to DC IV and DC home Follow-up with primary care provider in 2 weeks Follow-up with cardiology as needed Please call the inpatient unit for any questions or concerns regarding hospital stay Return to the ER for worsening symptoms Diet: AHA Activity: Ad juliet Followup: Vipin Whipple MD [ACTIVE - CAN ADMIT] -
[2024-10-10] MEDS: METOPROLOL TAR 25 MG TAB PO SCH (16:30)
[2024-10-10] MEDS: LORAZEPAM 1 MG TABLET PO ONE (16:30)
--- NOTE | 2024-10-10 18:13 | P.PN ---
Date of Service: 10/10/24 Subjective: Pt relays to me upon discharge that she has no home to go to as she was kicked out of her Friend's home last pm. CM spoke with her and she is agreeable to go to [employer] but has missed the window for today. She will therefore be discharged tomorrow. Review of Systems 10-point ROS is otherwise unremarkable Physical Examination - Vital Signs Temperature: 97.2 F Blood Pressure: 138/76 Pulse: 78 Respirations: 18 Pulse Ox (%): 94 - Physical Exam General: Alert, Oriented x3, [place] HEENT: Atraumatic, Normocephalic Neck: Supple Respiratory: Clear to auscultation bilaterally, Normal air movement Cardiovascular: Regular rate/rhythm, Normal S1 S2 Capillary refill: <2 Seconds Gastrointestinal: Soft and benign, W/out hepatosplenomegaly Musculoskeletal: No clubbing Integumentary: No rashes Neurological: Normal speech, Normal strength at 5/5 x4 extr, Cranial nerves 3-12 intact Lymphatics: No axilla or inguinal lymphadenopathy - Studies Laboratory Data (last 24 hrs) 10/09/24 10/09/24 10/09/24 21:00 21:00 21:00 WBC 8.30 Hgb 12.6 Hct 37.6 Plt Count 275 PT 12.2 INR 1.16 Sodium 140 Potassium 3.7 BUN 10 Creatinine 0.91 Glucose 105 Magnesium 2.4 Total Bilirubin 0.5 AST 13 L ALT 18 Alkaline Phosphatase 90 Lipase 26 Assessment and Plan Chest pain to rule out ACS Will trend cardiac enzymes - negative x 3 Will monitor telemetry - NSR Started on aspirin and statin EKG did not show any acute changes suggestive of ischemia Patient denies any chest pain Cardiology consult - evaluated, ECHO negative, recommends changing coreg to metoprolol, continue Losartan Hypertension Antihypertensives titrated Continue home medications and titrate as needed Hyperlipidemia Continue statin GI/DVT prophylaxis Advanced directive full code Discharge Plan: Home Plan to discharge in: 24 Hours - Advance Directives Does patient have a Living Will: No Does patient have a Durable POA for Healthcare: No - Code Status/Comfort Care Code Status: Full Code
[2024-10-10] MEDS: ATORVASTATIN 40 MG TAB PO SCH (21:25)
[2024-10-11] MEDS: ACETAMINOPHEN 325 MG TABLET PO PRN (03:14)
[2024-10-11 04:58] LABS: Anion Gap 8.8 mEq/L (5.0-15.0); Potassium 3.8 mEq/L (3.5-5.1)
[2024-10-11] MEDS: LOSARTAN POTASSIUM 50 MG TABLET PO SCH (09:04)
[2024-10-11 16:36] VITALS: BP 140/66; TEMP 98.2
== END 2024-10-11 17:52 | disposition home or self-care (01) ==
LOC: ER 20:22 → 2ND 22:58
PROVIDERS: ADMIT Family Medicine; ATTEND Internal Medicine
DX: R07.9 Chest pain, unspecified (principal); R00.2 Palpitations; I10 Essential (primary) hypertension; E78.5 Hyperlipidemia, unspecified; F41.9 Anxiety disorder, unspecified
CPT/HCPCS: 36415; 70450; 71045; 71275; 80048; 80053; 80061; 80076; 80143; 80179; 80307; 81001; 82077; 82570; 83036; 83690; 83735; 83880; 84443; 84484; 85025; 85610; 93306; 93970; 96361; 96372; 96374; 96375; 99285; G0378; J1650; J2270; J2405; J7030; Q9967

== ENCOUNTER 2024-10-27 07:52 | Emergency (ER) | payer SELFPAY ==
[2024-10-27 08:14] LABS: Absolute Eosinophils 0.1 K/uL (0-0.5); Absolute Lymphocytes (CBC) 0.8 K/uL (0.7-4.9); Absolute Monocytes 0.4 K/uL (0.1-1.3); Absolute Neutrophil 5.1 K/uL (1.8-8.0); Basophils % 0.3 % (0-1.3); Eosinophils % 0.9 % (0-4.4); Hematocrit 32.8 % (36.0-45.0); Hemoglobin 11.1 g/dL (12.0-15.0); Lymphocytes % 12.3 % (15.3-44.8); MCH 29.5 pg (27.0-35.0); MCHC 33.7 g/dL (32.0-36.0); MCV 87.3 fL (80-100); Neutrophils % 80.5 % (41.7-73.7); Platelets 210 thou/uL (152-406); RBC Red Blood Cell Count 3.76 M/uL (3.86-4.86); Red Cell Distribution Width 13.5 % (12.1-15.2)
--- NOTE | 2024-10-27 08:26 | RAD REPORT ---
Procedure: Chest Single View HISTORY: Cough COMPARISON: September 2024 FINDINGS: The lungs appear clear of acute infiltrate. No significant pleural effusion noted. The heart is normal size. IMPRESSION: No acute abnormality is displayed.
[2024-10-27 08:38] LABS: Anion Gap 8.9 mEq/L (5.0-15.0); BUN Blood Urea Nitrogen 10 mg/dL (7-18); Bicarbonate 26 mEq/L (21-32); Glomerular Filtration Rate 93 ml/min (=/>90); Glucose Level 154 mg/dL (74-106); Potassium 3.9 mEq/L (3.5-5.1); Sodium Level 135 mEq/L (136-145)
[2024-10-27 08:39] LABS: Troponin High Sensitivity < 3.0 pg/mL (<58.9)
--- NOTE | 2024-10-27 08:47 | EDPHYS ---
Physician Documentation [facility] Name: Mary Beth Pedroza Age: 54 yrs Sex: Female : 1970 Arrival Date: 10/27/2024 Time: 07:52 Bed 19 Private MD: ED Physician Markell Kim HPI: 10/27 08:00 This 54 yrs old Female presents to ER via EMS with complaints of High Blood ec2 Pressure. 08:00 Patient arrives today for evaluation of feeling unwell. Patient reports that she has ec2 been having some cough as well as some nausea, noted that her blood pressure was elevated as well. Patient reports some occasional chest pain, some occasional abdominal pain as well, denies any active pain at this time.. Historical: - Allergies: 07:59 No Known Allergies; mb9 - Home Meds: 07:59 losartan potassium (bulk) 100 % miscellaneous powder [Active]; carvedilol 6.25 mg Oral mb9 tablet [Active]; - PMHx: 07:59 Hypertensive disorder; Anxiety; mb9 - PSHx: 07:59 None; mb9 - Immunization history:: Adult Immunizations up to date. - Infectious Disease History:: Denies. - Social history:: Smoking status: Patient denies any tobacco usage or history of. ROS: 08:00 Constitutional: as per hpi ec2 Exam: 08:00 Constitutional: GEN: NAD Head: atraumatic Eyes: EOMI Ears: External ears are ec2 normal. CV: regular rate LUNGS: no respiratory distress ABD: non-distended SKIN: no evidence of rashes MSK: no evidence of trauma Vital Signs: 07:57 BP 175 / 86; Pulse 72; Resp 17; Temp 97.8; Pulse Ox 98% ; Weight 93.44 kg; Height 5 ft. mb9 7 in. ; Pain 5/10; 08:14 BP 145 / 79; Pulse 60; Resp 16; Pulse Ox 97% on R/A; mb9 08:54 BP 143 / 73; Pulse 62; Resp 16; Pulse Ox 100% on R/A; Pain 0/10; mb9 07:57 Body Mass Index 32.26 (93.44 kg, 170.18 cm) mb9 07:57 Pain Scale: Adult mb9 08:54 Pain Scale: Adult mb9 MDM: 07:59 Medical Screening Exam initiated ec2 08:00 Data reviewed: vital signs, nurses notes. ED course: Patient arrives today for feeling ec2 unwell. Examination is unrevealing. Will obtain a cardiac workup. Differential include processes such as arrhythmia, electrolyte disturbances, ACS.. 08:18 ED course: EKG independently reviewed and interpreted by me, shows normal sinus rhythm, ec2 rate of 75, no acute ST segment elevations, intervals are nonactionable.. 08:45 ED course: Lab work is unrevealing. Will discharge home and have the patient follow-up ec2 with PCP. Return precautions given. No evidence of endorgan damage, no evidence of ACS.. 10/27 08:00 Order name: Basic Metabolic Panel; Complete Time: 08:44 ec2 10/27 08:00 Order name: CBC with Diff; Complete Time: 08:28 ec2 10/27 08:00 Order name: Troponin HS; Complete Time: 08:44 ec2 10/27 08:00 Order name: XRAY Chest (1 view); Complete Time: 08:28 ec2 10/27 08:00 Order name: EKG; Complete Time: 08:00 ec2 10/27 08:00 Order name: Cardiac monitoring; Complete Time: 08:01 ec2 10/27 08:00 Order name: EKG - Nurse/Tech; Complete Time: 08:02 ec2 10/27 08:00 Order name: IV Saline Lock; Complete Time: 08:01 ec2 10/27 08:00 Order name: Labs collected and sent; Complete Time: 08:02 ec2 10/27 08:00 Order name: O2 Per Protocol; Complete Time: 08:01 ec2 10/27 08:00 Order name: O2 Sat Monitoring; Complete Time: 08:02 ec2 Administered Medications: No medications were administered Disposition Summary: 10/27/24 08:46 Discharge Ordered Notes: Location: Home ec2 Condition: Stable ec2 Diagnosis - Essential (primary) hypertension ec2 Followup: ec2 - With: Private Physician - When: - Reason: Re-evaluation by your physician Discharge Instructions: - Discharge Summary Sheet ec2 - Hypertension, Adult, [id number] ec2 Forms: - Medication Reconciliation Form ec2 - Antibiotic Education ec2 - Prescription Opioid Use ec2 - Patient Portal Instructions ec2 - Leadership Thank You Letter ec2 Signatures: Dispatcher [employer] EDMS Thompson, Heidi, RN RN mb9 Markell Kim MD MD ec2
--- NOTE | 2024-10-27 08:47 | ER ---
Nurse's Notes [facility] Name: Mary Beth Pedroza Age: 54 yrs Sex: Female : 1970 Arrival Date: 10/27/2024 Time: 07:52 Bed 19 Private MD: Diagnosis: Essential (primary) hypertension Presentation: 10/27 07:57 Chief complaint: EMS states: "toned out for feeling dizzy and having headache after mb9 being on new unknown medicine for a few days. On scene, pt BP 180/90". Coronavirus screen: Vaccine status: Patient reports being unvaccinated. Ebola Screen: No symptoms or risks identified at this time. Initial Sepsis Screen: Does the patient meet any 2 criteria? No. Patient's initial sepsis screen is negative. Does the patient have a suspected source of infection? No. Patient's initial sepsis screen is negative. Risk Assessment: Do you want to hurt yourself or someone else? Patient reports no desire to harm self or others. Onset of symptoms was October 27, 2024. 07:57 Acuity: MAK 3 mb9 07:57 Method Of Arrival: EMS: [facility] mb9 Triage Assessment: 08:00 General: Appears in no apparent distress. Behavior is calm, cooperative. Pain: mb9 Complains of pain in head Pain does not radiate. Quality of pain is described as throbbing. EENT: No signs and/or symptoms were reported regarding the EENT system. Neuro: Bernard Agitation-Sedation Scale (RASS): 0 - Alert and Calm Level of Consciousness is awake, alert, obeys commands, Oriented to person, place, time, situation, Appropriate for age Reports headache. Cardiovascular: Reports lightheadedness, Patient's skin is warm and dry. Respiratory: Airway is patent Respiratory effort is even, unlabored, Respiratory pattern is regular, symmetrical. GI: No signs and/or symptoms were reported involving the gastrointestinal system. : No signs and/or symptoms were reported regarding the genitourinary system. Derm: Skin is pink, warm \\T\\ dry. Musculoskeletal: Range of motion: intact in all extremities. Historical: - Allergies: 07:59 No Known Allergies; mb9 - Home Meds: 07:59 losartan potassium (bulk) 100 % miscellaneous powder [Active]; carvedilol 6.25 mg Oral mb9 tablet [Active]; - PMHx: 07:59 Hypertensive disorder; Anxiety; mb9 - PSHx: 07:59 None; mb9 - Immunization history:: Adult Immunizations up to date. - Infectious Disease History:: Denies. - Social history:: Smoking status: Patient denies any tobacco usage or history of. Screenin:[facility] ED Fall Risk Assessment (Adult) History of falling in the last 3 months, mb9 including since admission No falls in past 3 months (0 pts) Confusion or Disorientation No (0 pts) Intoxicated or Sedated No (0 pts) Impaired Gait No (0 pts) Mobility Assist Device Used No (0 pt) Altered Elimination No (0 pt) Score/Fall Risk Level 0 - 2 = Low Risk Oriented to surroundings, Maintained a safe environment, Educated pt \\T\\ family on fall prevention, incl call for assistance when getting out of bed. Abuse screen: Denies threats or abuse. Nutritional screening: No deficits noted. Tuberculosis screening: No symptoms or risk factors identified. Assessment: 08:01 Reassessment: see triage assessment. mb9 08:54 Reassessment: No changes from previously documented assessment. Patient and/or family mb9 updated on plan of care and expected duration. Pain level reassessed. Patient is alert, oriented x 3, equal unlabored respirations, skin warm/dry/pink. Vital Signs: 07:57 BP 175 / 86; Pulse 72; Resp 17; Temp 97.8; Pulse Ox 98% ; Weight 93.44 kg; Height 5 ft. mb9 7 in. ; Pain 5/10; 08:14 BP 145 / 79; Pulse 60; Resp 16; Pulse Ox 97% on R/A; mb9 08:54 BP 143 / 73; Pulse 62; Resp 16; Pulse Ox 100% on R/A; Pain 0/10; mb9 07:57 Body Mass Index 32.26 (93.44 kg, 170.18 cm) mb9 07:57 Pain Scale: Adult mb9 08:54 Pain Scale: Adult mb9 ED Course: 07:53 Patient arrived in ED. ec2 07:53 Markell Kim MD is Attending Physician. ec2 07:57 Jennifer Thompson RN is Primary Nurse. mb9 07:59 Triage completed. mb9 08:00 Arm band placed on. mb9 08:01 Placed in gown. Bed in low position. Call light in reach. Side rails up X 1. Provided mb9 Education on: press call light if needing anything. Client placed on continuous cardiac and pulse oximetry monitoring. NIBP monitoring applied. ekg monitor tech on. 08:01 Initial lab(s) drawn, by me, sent to lab. Inserted saline lock: 20 gauge in left mb9 antecubital area, using aseptic technique. Blood collected. Flushed with 10 mL NS. 08:14 EKG done, by ED staff, reviewed by Markell Kim MD. mb9 08:18 XRAY Chest (1 view) In Process Unspecified. EDMS 08:54 No provider procedures requiring assistance completed. IV discontinued, intact, mb9 bleeding controlled, No redness/swelling at site. Pressure dressing applied. Administered Medications: No medications were administered Medication: 08:54 VIS not applicable for this client. mb9 Outcome: 08:46 Discharge ordered by . ec2 08:54 Discharged to home ambulatory, mb9 08:54 Condition: stable 08:54 Discharge instructions given to patient, Instructed on discharge instructions, follow up and referral plans. Demonstrated understanding of instructions, follow-up care, 09:03 Patient left the ED. mb9 Signatures: Dispatcher [employer] Jennifer Blunt RN RN mb9 Corral, Edwin, MD MD ec2
[2024-10-27 09:17] VITALS: BP 143/73; TEMP 97.8; O2SAT 100
== END 2024-10-27 09:03 | disposition home or self-care (01) ==
LOC: ER 07:52
DX: I10 Essential (primary) hypertension (principal); F41.9 Anxiety disorder, unspecified
CPT/HCPCS: 36415; 71045; 80048; 84484; 85025; 93005; 99284

== ENCOUNTER 2024-11-03 07:28 | Emergency (ER) | payer SELFPAY ==
[2024-11-03] MEDS ORDERED: IPRATROPIUM BROM 0.5MG/2.5ML ONE (08:24)
[2024-11-03] MEDS ORDERED: ALBUTEROL 2.5 MG/3 ML NEB SOL ONE (08:24)
[2024-11-03 08:41] LABS: Influenza A Ag Negative; Influenza B Ag Negative; SARS-CoV-2 Antigen Rapid Res Negative (Negative)
--- NOTE | 2024-11-03 08:48 | RAD REPORT ---
Procedure: Chest Pa And Lat (2 Views) HISTORY: Cough COMPARISON: October 27, 2024 FINDINGS: The lungs appear clear of acute infiltrate. No significant pleural effusion noted. The heart is normal size. IMPRESSION: No acute abnormality is displayed.
--- NOTE | 2024-11-03 09:00 | ER ---
Nurse's Notes [facility] Name: Mary Beth Steiner Age: 54 yrs Sex: Female : 1970 Arrival Date: 11/03/2024 Time: 07:28 Bed 13 Private MD: Diagnosis: Acute upper respiratory infection, unspecified;Essential (primary) hypertension Presentation: 11/03 07:32 Chief complaint: EMS states: Flu like symptoms since , chills, nausea, ph headache, and fatigue, BP elevated for EMS, pt states that she has not taken her BP medication because she doesn't want to mix it with her cold medicine. Coronavirus screen: Vaccine status: Patient reports being unvaccinated. Ebola Screen: No symptoms or risks identified at this time. Initial Sepsis Screen: Does the patient meet any 2 criteria? No. Patient's initial sepsis screen is negative. Does the patient have a suspected source of infection? No. Patient's initial sepsis screen is negative. Risk Assessment: Do you want to hurt yourself or someone else? Patient reports no desire to harm self or others. Onset of symptoms was November 03, 2024. 07:32 Method Of Arrival: EMS: [facility] ph 07:32 Acuity: MAK 3 ph Historical: - Allergies: 07:46 peanut; ph 07:46 Wheat/glutens; ph - Home Meds: 07:46 carvedilol 6.25 mg Oral tablet [Active]; losartan potassium (bulk) 100 % miscellaneous ph powder [Active]; - PMHx: 07:46 Anxiety; Hypertensive disorder; ph - Immunization history:: Adult Immunizations unknown. - Infectious Disease History:: Denies. - Social history:: Smoking status: unknown. Screenin:02 [facility] ED Fall Risk Assessment (Adult) History of falling in the last 3 months, ph including since admission No falls in past 3 months (0 pts) Confusion or Disorientation No (0 pts) Intoxicated or Sedated No (0 pts) Impaired Gait No (0 pts) Mobility Assist Device Used No (0 pt) Altered Elimination No (0 pt) Score/Fall Risk Level 0 - 2 = Low Risk Oriented to surroundings, Maintained a safe environment, Hourly rounding (assess needs \T\ fall precautionary measures) done. Abuse screen: Denies threats or abuse. Denies injuries from another. Nutritional screening: No deficits noted. Tuberculosis screening: No symptoms or risk factors identified. Assessment: 09:03 General: Appears in no apparent distress. comfortable, Behavior is calm, cooperative, ph Reports chills for. Pain: Denies pain. Neuro: Level of Consciousness is awake, alert, obeys commands, Oriented to person, place, time, situation. Cardiovascular: Capillary refill < 3 seconds in bilateral fingers Patient's skin is warm and dry. Respiratory: Airway is patent Respiratory effort is even, unlabored, Respiratory pattern is regular, symmetrical. GI:. EENT: Reports nasal congestion. Derm: Skin is pink, warm \T\ dry. Musculoskeletal: Circulation, motion, and sensation intact. Range of motion: intact in all extremities. Vital Signs: 07:32 BP 173 / 107; Pulse 85; Resp 18; Pulse Ox 95% on R/A; Weight 95.25 kg; Height 5 ft. 6 ph in. ; 07:32 Temp 98.2; ph 09:04 BP 155 / 98; Pulse 87; Resp 18; Temp 98; Pulse Ox 96% on R/A; ph 07:32 Body Mass Index 33.89 (95.25 kg, 167.64 cm) ph ED Course: 07:32 Patient arrived in ED. ph 07:41 Prieto Sanford MD is Attending Physician. ms3 07:46 Triage completed. ph 07:47 Arm band placed on Patient placed in an exam room, on pulse oximetry. ph 08:19 Madelin Spangler, RN is Primary Nurse. ph 08:40 Chest Pa And Lat (2 Views) XRAY In Process Unspecified. EDMS 08:59 Kevin Regan DO is Referral Physician. dale 09:02 CMP Sent. ph 09:02 CBC with Diff Sent. ph 09:03 Patient has correct armband on for positive identification. Bed in low position. Call ph light in reach. Side rails up X 1. Pulse ox on. NIBP on. Door closed. Noise minimized. Warm blanket given. Pillow given. 09:05 Initial lab(s) drawn, by me, sent to lab. Flu and/or RSV swab sent to lab. Inserted ph saline lock: 20 gauge in left antecubital area, using aseptic technique. Blood collected. Flushed with 10 mL NS. 09:05 No provider procedures requiring assistance completed. ph 09:55 IV discontinued, intact, bleeding controlled, No redness/swelling at site. Pressure ph dressing applied. Administered Medications: 09:50 Drug: predniSONE PO 60 mg PO once Route: PO; ph 09:55 Follow up: Response: No adverse reaction ph 09:50 Drug: AZITHromycin PO 500 mg PO once Route: PO; ph 09:55 Follow up: Response: No adverse reaction ph 09:50 Drug: Lisinopril PO 20 mg PO once Route: PO; ph 09:55 Follow up: Response: No adverse reaction ph 09:56 Drug: DuoNeb Nebulize (2.5 mg - 0.5 mg) 3 ml Nebulizer once Route: Nebulizer; ph 09:56 Follow up: Response: No adverse reaction ph Medication: 09:03 VIS not applicable for this client. ph Outcome: 09:00 Discharge ordered by . dale 09:50 Discharged to home ambulatory, ph 09:50 Condition: good 09:50 Discharge instructions given to patient, Instructed on discharge instructions, follow up and referral plans. Demonstrated understanding of instructions, follow-up care, medications, Prescriptions given X 4, 09:56 Patient left the ED. ph Signatures: Dispatcher [employer] EDMS Prieto Sanford MD MD cha Hall, Patricia, RN RN ph Binu Rider DO DO ms3
--- NOTE | 2024-11-03 09:00 | EDPHYS ---
Physician Documentation [facility] Name: Mary Beth Steiner Age: 54 yrs Sex: Female : 1970 Arrival Date: 11/03/2024 Time: 07:28 Bed 13 Private MD: ED Physician Prieto Sanford HPI: 11/03 08:19 This 54 yrs old Female presents to ER via EMS with complaints of Flu Symptoms. ms3 08:19 54-year-old female with past medical history of anxiety, hypertension presents to the [facility] emergency department for flulike illness that is been ongoing since . Patient states she has cough, runny nose, fevers, chills and bodyaches. Patient rates her discomfort a 7/10. She denies any alleviating or inciting factors.. Historical: - Allergies: 07:46 peanut; ph 07:46 Wheat/glutens; ph - Home Meds: 07:46 carvedilol 6.25 mg Oral tablet [Active]; losartan potassium (bulk) 100 % miscellaneous ph powder [Active]; - PMHx: 07:46 Anxiety; Hypertensive disorder; ph - Immunization history:: Adult Immunizations unknown. - Infectious Disease History:: Denies. - Social history:: Smoking status: unknown. ROS: 08:19 Cardiovascular: Negative for chest pain, and palpitations. ms3 08:19 MS/Extremity: Negative for injury and deformity, Skin: Negative for injury, rash, and discoloration, 08:19 Constitutional: Positive for body aches, chills, fever, 08:19 Respiratory: Positive for cough, Exam: 08:19 Constitutional: This is a well developed, well nourished patient who is awake, alert, ms3 and in no acute distress. Cardiovascular: Regular rate and rhythm with a normal S1 and S2. No gallops, murmurs, or rubs. Normal PMI, no JVD. No pulse deficits. 08:19 Skin: Warm, dry with normal turgor. Normal color with no rashes, no lesions, and no evidence of cellulitis. MS/ Extremity: Pulses equal, no cyanosis. Neurovascular intact. Full, normal range of motion. 08:19 Respiratory: the patient does not display signs of respiratory distress, Respirations: normal, Breath sounds: wheezing: expiratory is heard in the left posterior upper lobe, right posterior upper lobe, left posterior lower lobe, right posterior middle lobe and right posterior lower lobe, Vital Signs: 07:32 BP 173 / 107; Pulse 85; Resp 18; Pulse Ox 95% on R/A; Weight 95.25 kg; Height 5 ft. 6 ph in. ; 07:32 Temp 98.2; ph 09:04 BP 155 / 98; Pulse 87; Resp 18; Temp 98; Pulse Ox 96% on R/A; ph 07:32 Body Mass Index 33.89 (95.25 kg, 167.64 cm) ph MDM: 08:07 Medical Screening Exam initiated dale 08:19 Differential Diagnosis: Bronchitis Influenza Upper Respiratory Infection Viral Syndrome ms3 Pneumonia. 08:23 Transition of care: After a detail discussion of the patient's case, care is ms3 transferred to Prieto Sanford MD. 09:04 Data reviewed: vital signs, nurses notes, lab test result(s), radiologic studies, plain dale films. Consideration of Admission/Observation Escalation of care including admission/observation considered. I considered the following discharge prescriptions or medication management in the emergency department Medications were administered in the Emergency Department. See MAR. Independent interpretation of the following test(s) in the Emergency Department X-Ray: My interpretation is cxr neg. Test considered but Not performed: EKG: no ekg. Historians other than the Patient: pt well informed. Care significantly affected by the following chronic conditions: Hypertension, anxiety. Counseling: I had a detailed discussion with the patient and/or guardian regarding the historical points, exam findings, and any diagnostic results supporting the discharge/admit diagnosis, lab results, radiology results. 11/03 07:41 Order name: COVID-19 Ag + Flu A+B Ag; Complete Time: 08:53 ms3 11/03 08:19 Order name: CBC with Diff ms3 11/03 08:19 Order name: CMP ms3 11/03 08:15 Order name: Chest Pa And Lat (2 Views) XRAY; Complete Time: 08:53 ph Administered Medications: 09:50 Drug: predniSONE PO 60 mg PO once Route: PO; ph 09:55 Follow up: Response: No adverse reaction ph 09:50 Drug: AZITHromycin PO 500 mg PO once Route: PO; ph 09:55 Follow up: Response: No adverse reaction ph 09:50 Drug: Lisinopril PO 20 mg PO once Route: PO; ph 09:55 Follow up: Response: No adverse reaction ph 09:56 Drug: DuoNeb Nebulize (2.5 mg - 0.5 mg) 3 ml Nebulizer once Route: Nebulizer; ph 09:56 Follow up: Response: No adverse reaction ph Disposition Summary: 11/03/24 09:00 Discharge Ordered Notes: Location: Home dale Problem: new dale Symptoms: have improved dale Condition: Stable dale Diagnosis - Acute upper respiratory infection, unspecified dale - Essential (primary) hypertension dale Followup: dale - With: Private Physician - When: 2 - 3 days - Reason: Recheck today's complaints, Continuance of care, Re-evaluation by your physician Followup: dale - With: Kevin Regan DO - When: 2 - 3 days - Reason: Recheck today's complaints, Re-evaluation by your physician Discharge Instructions: - Discharge Summary Sheet dale - Hypertension, Adult dale - Upper Respiratory Infection, Adult dale - Cool Mist Vaporizer dale - Upper Respiratory Infection, Adult, [id number] dale - Hypertension, Adult, [id number] dale - How to Take Your Blood Pressure, [id number] dale - Viral Respiratory Infection, [id number] dale - Aspirin and Your Heart dale - Cough, Adult dale - Managing Your Hypertension dale Forms: - Medication Reconciliation Form dale - Antibiotic Education dale - Prescription Opioid Use dale - Patient Portal Instructions [facility] - Leadership Thank You Letter dale - Work release form Prescriptions: - albuterol sulfate 90 mcg/actuation Inhalation HFA Aerosol Inhaler - inhale 2 inhalation INHALATION route every 4 to 6 hours as needed for shortness dale of breath or wheezing; 2 unit; Refills: 0, Product Selection Permitted - Lisinopril 10 mg Oral Tablet - take 1 tablet ORAL route once daily; 20 tablet; Refills: 0, Product Selection dale Permitted - Medrol (Alberto) 4 mg Oral Tablets, Dose Pack - take 1 tablet ORAL route as directed - follow package instructions; 1 packet; dale Refills: 0, Product Selection Permitted - Zithromax 500 mg Oral tablet - take 1 tablet ORAL route once daily for 5 days begin 11/04/24; 5 tablet; dale Refills: 0, Product Selection Permitted Signatures: Dispatcher [employer] Prieto Milan MD MD cha Hall, Patricia, RN RN Binu Contreras DO DO ms3 Corrections: (The following items were deleted from the chart) 07:41 07:41 COVID-19 Ag + Flu A+B Ag+I.LAB.BRZ ordered. EDMS EDMS 08:39 07:47 Chest Single View+RAD.RAD.BRZ ordered. EDMS EDMS
[2024-11-03 09:09] LABS: Absolute Eosinophils 0.1 K/uL (0-0.5); Absolute Lymphocytes (CBC) 0.7 K/uL (0.7-4.9); Absolute Monocytes 0.6 K/uL (0.1-1.3); Absolute Neutrophil 2.2 K/uL (1.8-8.0); Basophils % 0.6 % (0-1.3); Eosinophils % 2.9 % (0-4.4); Hemoglobin 12.1 g/dL (12.0-15.0); Lymphocytes % 20.7 % (15.3-44.8); MCH 28.8 pg (27.0-35.0); MCHC 32.8 g/dL (32.0-36.0); MCV 87.8 fL (80-100); MPV 8.6 fL (7.6-11.3); Neutrophils % 59.8 % (41.7-73.7); Nucleated Red Blood Cells % 0.1 % (0-0); Platelets 203 thou/uL (152-406); RBC Red Blood Cell Count 4.22 M/uL (3.86-4.86); Red Cell Distribution Width 13.5 % (12.1-15.2)
[2024-11-03 09:20] LABS: Albumin 3.7 g/dL (3.4-5.0); Albumin/Globulin Ratio 0.8 (1.1-1.8); Anion Gap 8.1 mEq/L (5.0-15.0); Bilirubin Total 0.3 mg/dL (0.2-1.0); Globulin 4.5 g/dL (2.3-3.5); Potassium 4.1 mEq/L (3.5-5.1); Protein, Total 8.2 g/dL (6.4-8.2)
[2024-11-03] MEDS ORDERED: AZITHROMYCIN 250 MG TAB ONE (09:33)
[2024-11-03] MEDS ORDERED: predniSONE 20 MG TAB ONE (09:33)
[2024-11-03] MEDS ORDERED: lisinopriL 20 MG TAB ONE (09:34)
[2024-11-03 10:03] VITALS: BP 155/98; TEMP 98; O2SAT 96
== END 2024-11-03 09:56 | disposition home or self-care (01) ==
LOC: ER 07:28
DX: J06.9 Acute upper respiratory infection, unspecified (principal); I10 Essential (primary) hypertension; Z11.52 Encounter for screening for COVID-19
CPT/HCPCS: 36415; 71046; 80053; 85025; 87428; 99285; J7512; J7613; J7644